=== PATIENT | female | born 2000 | race Caucasian/White ===

== ENCOUNTER 2023-02-20 08:17 | Outpatient (AMB) | payer OTHER, MEDICAID, SELFPAY ==
--- NOTE | 2023-02-20 08:23 | AM.OFFWIN_ITS ---
Intake Vital Signs 02/20/23 08:24 Height 5 ft 5 in Weight 131 lb 2 oz BMI 21.8 BP 102/62 Blood Pressure Location Rt brachial Position Sitting Pulse 62 Pulse Source Pulse Oximeter Temp 98.0 F Temp Source Temporal Artery Scan Pulse Oximetry (%) 99 Intake Visit Reasons: [employer] RT ear infection Intake Note: pt is here for right ear pain and sore throat Patient Tobacco Use Status: Never used Tobacco Allergies No Known Allergies Allergy (Verified 02/20/23 08:24) Do you need a note to return to daycare/school/sports/work: Yes HPI [employer] RT ear infection HPI Details 23 [facility] right ear pain and sore throat. Denies fever or chills. Denies known exposure to sick contact. Reports mild cough. Denies shortness of breath. [facility] Social History Patient Tobacco Use Status: Never used Tobacco Review of Systems Const All systems reviewed & are unremarkable except as noted in HPI and below Physical Exam Vital Signs: Last Vital Signs Temp 98.0 F 02/20/23 08:24 Pulse 62 02/20/23 08:24 BP 102/62 02/20/23 08:24 Pulse Ox 99 02/20/23 08:24 BMI result Body Mass Index 21.8 Const General: cooperative and no acute distress HEENT Head: Yes normal to inspection Ears: hearing grossly normal bilaterally, TM normal on the left and TM abnormal (right TM bulging, erythematous) Neck Neck: Yes no lymphadenopathy and Yes no JVD Resp Effort & Inspection: normal respiratory effort and able to speak in complete sentences Auscultation: clear to auscultation bilaterally Cardio Jugular venous distension: no JVD Palpation: normal PMI Rate: regular rate Rhythm: regular rhythm Skin General skin exam: no rashes or lesions noted Extrem General: Yes capillary refill normal and Yes no clubbing, cyanosis or edema Psych Appearance: grossly normal Mental Status: mental status grossly normal Speech and movement: Normal speech and movement present Results AMB Rapid Strep AMB Rapid Strep Negative Last Edit by Patrick Olson CMA on 02/20/23 08 :37 Results Reviewed Results Reviewed: Laboratory Last Values Strep Scn Rapid Clinic Negative 02/20/23 08:36 Assessment & Plan Assessment & Plan (1) Right otitis media: Code(s): H66.91 - Otitis media, unspecified, right ear Qualifiers: Otitis media type: unspecified nonsuppurative Qualified Code(s): H65.91 - Unspecified nonsuppurative otitis media, right ear Plan: Augmentin for right OM. Reviewed indications, use, possible side effects of medication. Rapid strep was negative. Advised warm salt water gargles, otc throat lozenges/spray and Tylenol/Motrin as needed for pain. Encouraged increase d fluid intake and rest. Work note provided. Advised to return to the clinic if she does not improve with treatment. Patient verbalizes understanding and agrees to plan. Orders: Orders AMB Rapid Strep Screen Today Z13.9 - Encounter for screening, unspecified Sly Hernandez MD Medications: New amoxicillin-pot clavulanate 875-125 mg 1 tab PO BID 14 tabs 0RF 7 days H65.91 - Unspecified nonsuppurative otitis media, right ear JUSTUS Lam Coding Level of Care Code Est Pt Level 3 (82757) Diagnoses Right non-suppurative otitis media H65.91 Otitis media type: unspecified nonsuppurative
[2023-02-20 08:24] VITALS: BP 102/62; PULSE 62; TEMP 36.7; O2SAT 99; BMI 21.8
== END 2023-02-20 09:04 | disposition home or self-care (01) ==
PROVIDERS: Visit Provider Nurse Practitioner Family
DX: H65.91 Unspecified nonsuppurative otitis media, right ear (principal); Z13.9 Encounter for screening, unspecified
CPT/HCPCS: 87880; 99213